=== PATIENT | male | born 1945 | race Caucasian/White ===

== ENCOUNTER 2017-01-24 20:38 | Emergency (ER) | payer MEDICARE, OTHER ==
--- NOTE | 2017-01-24 21:54 | ERNOTE ---
Dyspnea - General Presenting Symptoms: other - cough and fever Time Seen by Provider: 01/24/17 21:00 Source: patient, family Exam Limitations: no limitations - Immun/Allergies/Home Medications Immunizations: IMMUNIZATION HX Immunizations Up to Date Yes History of Influenza Vaccine Yes Hx Pneumococcal Vaccination Yes Allergies/Adverse Reactions: Allergies metoprolol Adverse Reaction (Intermediate, Verified 01/24/17 21:16) Hives Home Medications: HOME MEDICATIONS Citalopram Hydrobromide [Celexa] 20 mg PO DAILY 01/24/17 [Last Taken Unknown] Diltiazem HCl [Cardizem LA] 240 mg PO DAILY 01/24/17 [Last Taken Unknown] Levofloxacin [Levaquin] 500 mg PO DAILY 01/24/17 [Last Taken Unknown] Lisinopril [Prinivil] 10 mg PO DAILY 01/24/17 [Last Taken Unknown] Omeprazole 20 mg PO DAILY 01/24/17 [Last Taken Unknown] Simvastatin 20 mg PO DAILY 01/24/17 [Last Taken Unknown] Warfarin Sodium [Coumadin] 5 mg PO DAILY 01/24/17 [Last Taken Unknown] - History of Present Illness Narrative: Pt was seen by his PCP a week ago and given a z-pack for cough. he did not improve and levaquin was called in for him. He took one today and continuted to worsen. Fever up to 102 at home today Severity: moderate Initiating event: Reports: upper resp illness Modifying Factors - (Improves): Reports: rest Modifying Factors (Worsens): Reports: coughing Associated Symptoms-Dyspnea: Reports: fever/chills Prior Treatment: Reports: recently seen, treated by physician Review of Systems - Review of Systems Constitutional: Present: recent illness, fever, fatigue EYE: Present: no symptoms reported ENT: Present: no symptoms reported Respiratory: Present: See HPI Cardiology: Present: chest pain, palpitations Gastrointestinal/Abdominal: Present: no symptoms reported Genitourinary: Present: no symptoms reported Musculoskeletal: Absent: muscle stiffness, neck pain Skin: Present: no symptoms reported Neurological: Present: no symptoms reported Endocrine: Present: no symptoms reported Hematologic/Lymphatic: Present: no symptoms reported Psych: Present: no symptoms reported - Patient's Past Medical History Patient History - Medical: Anxiety, Depression, GERD, Kidney stone, Osteoarthritis Patient History - Cardiac/Respiratory: Atrial Fibrillation, Hypertension, Pneumonia Patient History - Cancer: No Hx of Cancer Patient History - Surgical Procedures: Other, Orthopedic Patient History - Other: None - Family History Mother Family History - Medical: , Anxiety Family History - Cardiac/Respiratory: Myocardial Infarction Father Family History - Medical: Family History - Cardiac/Respiratory: Hyperlipidemia, Myocardial Infarction Brother Family History - Cardiac/Respiratory: Coronary Heart Disease - Social History Living Situations: home Abuse History: No History of abuse Psych History: Hx of Anxiety, Hx of Depression Smoking Status: Former smoker Alcohol Use: rarely Drug Use: none - Immunizations Immunizations Up to Date: Yes Hx Pneumococcal Vaccination: Yes History of Influenza Vaccine: Yes Physical Exam - Physical Exam General Appearance: Present: wd/wn, alert, mild distress Head Exam: Present: normal inspection, no evidence of injury Eye Exam: Normal inspection: bilateral Ears, Nose, Throat: Present: normal ENT inspection Neck: Present: normal inspection, nontender Respiratory: Present: no respiratory distress, normal breath sounds, no accessory muscle use Cardiovascular/Chest: Present: irregularly irregular - distant heart sounds Gastrointestinal/Abdominal: Present: normal bowel sounds, nontender, nondistended, soft Extremity Exam: Present: normal inspection, non-tender, normal range of motion, no edema Neurological Exam: Present: alert, oriented, normal mood/affect Skin Exam: Present: normal color, warm/dry ED Progress - Results and Orders Patient's Lab Results:: I have reviewed the patient's lab results. Results and Orders: Laboratory Tests 01/24/17 01/24/17 21:57 21:57 WBC 8.3 Hgb 13.5 Hct 38.2 L Plt Count 200 Sodium 137 Potassium 4.4 Chloride 103 Carbon Dioxide 24.2 Anion Gap 14.2 H BUN 22 Creatinine 1.31 Est GFR (Non-Af Amer) 57 L BUN/Creatinine Ratio 16.8 Random Glucose 118 H Calcium 8.1 Total Bilirubin 0.4 AST 14 ALT 18 L Alkaline Phosphatase 68 Total Protein 6.6 Albumin 3.0 L - Vital Signs Patient's Vital Signs:: I have reviewed the patient's vital signs. Vital Signs: Vital Signs 01/24/17 21:07 Temperature 37.0 C Pulse Rate 111 H Respiratory 24 H Rate Blood Pressure 117/71 O2 Sat by Pulse 95 Oximetry - EKG EKG: atrial fibrillation - approx 100 bpm EKG read: Interp. by me - X-Ray X-Ray #1 X-Ray: chest Interpretation: Interp. by me X-ray Comments: No infiltrate or effusion, cardiac silhouette normal - Progress/Reassessment Chief Complaint: Cough Progress:: Improved Departure Clinical Impression: Bronchitis - Departure Disposition: Home Follow Up Needed Condition: Good Instructions: Acute Bronchitis, [id number] Additional Instructions: continue to take the antibiotics you have been previously prescribed. You may try mucinex 600 mg twice a day. follow up early next week with your doctor Referrals: Wilver Taylor MD [Primary Care Provider] -
[2017-01-24 22:03] LABS: Hematocrit 38.2 % (42.0-52.0); Hemoglobin 13.5 gm/dL (13.5-18.0); Mean Cell Volume 91.4 fl (78-100); Mean Corpuscular Hemoglobin 32.3 pg (27-31); Mean Corpuscular Hgb Conc 35.3 g/dl (32-36); Mean Platelet Volume 9.4 fl (6.0-9.5); Neutrophil # 5.8 K/mm3 (1.3-6.0); Neutrophil % 69.8 % (42-75.0); Platelet Count 200 K/mm3 (150-450); Red Blood Count 4.18 M/mm3 (4.7-6.0); Red Cell Distribution Width 13.3 % (11.5-14.0); White Blood Count 8.3 K/mm3 (4.0-10.5)
[2017-01-24 22:16] LABS: Anion Gap 14.2 mmol/L (6.8-13.8); BUN/Creatinine Ratio 16.8 (9.0-21.6); Bilirubin, Total 0.4 mg/dL (0.0-1.1); Ca. Corrected For Albumin 8.6 mg/dL (8.4-10.2); Calcium * 8.1 mg/dL (7.9-10.9); Carbon Dioxide 24.2 mmol/L (24-32.6); Potassium 4.4 mmol/L (3.4-4.6); Total Protein 6.6 gm/dL (6.2-8.2)
[2017-01-25 04:09] VITALS: BP 114/80
== END 2017-01-24 22:38 | disposition home or self-care (01) ==
LOC: ER 20:38
DX: J20.9 Acute bronchitis, unspecified (principal); F41.8 Other specified anxiety disorders; K21.9 Gastro-esophageal reflux disease without esophagitis; I48.91 Unspecified atrial fibrillation; Z79.01 Long term (current) use of anticoagulants; I10 Essential (primary) hypertension; M19.90 Unspecified osteoarthritis, unspecified site